=== PATIENT | female | born 1960 | race Caucasian/White ===

== ENCOUNTER 2023-11-25 08:40 | Outpatient (AMB) | payer BC, SELFPAY ==
--- NOTE | 2023-11-25 08:47 | MHC.PC.OV ---
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 Had a colonoscopy and endoscopy a couple months ago Client Service Representative Required: No Allergies No Known Allergies Allergy (Verified 11/25/23 08:49) Medication List - Last Reconciled 11/25/23 by Mayra Whittington PA-C escitalopram oxalate 10 mg PO DAILY fluticasone propionate 220 mcg/actuation 2 puffs inhalation BID ondansetron HCl 4 mg PO Q8H PRN pantoprazole 40 mg PO BID valacyclovir 1,000 mg PO BID Tobacco use date assessed: 11/25/23 Dental Screening Dental Screen Date: 11/25/23 Did you have a dental visit in the last 12 months?: Yes Did you have a dental problem in the last 6 months where you did not have access to dental care?: No Was dental information given to patient?: Patient has dentist HPI 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 She is transferring from [facility]. She complains today of fatigue. She states this started when winter started. She states she got sick around the holidays and since then has just been feeling tired. She states she feels like she could nap at any point. No cp, sob, dizziness, leg swelling. She states that her late used to tell her that she snores a lot. She denies any known episodes of witnessed apnea. Denies any gasping arousals. She states that when she wakes up she still feels tired. No headaches. -Had labs in September cbc, b12, vit d, cmp, tsh and states all labs were normal. Psych: Currently on Lexapro 10 mg. Denies any SI/HI. States 10 mg is very helpful. GI: On pantoprazole 40 mg b.i.d.. Recently had an endoscopy and colonoscopy at [facility] in May 21, 2023. She states that she still just feels nauseous all of the time. She also has loose stools. She denies any weight loss with this. No vomiting, blood in stool or constipation. Pulm: well controlled and uses albuterol rarely. She is not currently on maintenance inhaler. She has not needed anything in 6-7 months. Mammo: UTD 07/20 Pap: UTD- 10/07/23, sees [facility]- UTD within the last 6 months [facility] Medical History (Updated 11/25/23 @ 10:07 by Mayra Whittington PA-C) Fatigue Major depressive disorder, recurrent episode, mild Generalized anxiety disorder Frequent loose stools Nausea GERD with esophagitis Family History (Updated 11/25/23 @ 09:03 by Ebony Fairbanks CMA) Mother HTN (hypertension) Hypercholesteremia Father HTN (hypertension) Hypercholesteremia Sister Leukemia Social History Housing: House Patient Tobacco Use Status: Never used Tobacco e-Cigarette/Vaping Use: Never Used Second Hand Smoke Exposure: Yes (occasionally) service: No Current occupational status: employed Current occupation: [employer] Current occupational exposures/hazards: No Cognitive needs: No Hearing needs: No Vision needs: Yes (Distance glasses) Questionnaire PHQ-9 Over the last 2 weeks, how often have you been bothered by any of the following problems? 1. Little interest or pleasure in doing things: not at all 2. Feeling down, depressed, or hopeless: not at all 3. Trouble falling or staying asleep, or sleeping too much: several days 4. Feeling tired or having little energy: several days 5. Poor appetite or overeating: several days 6. Feeling bad about yourself - or that you are a failure or have let yourself or your family down: not at all 7. Trouble concentrating on things, such as reading the newspaper or watching television: not at all 8. Moving or speaking so slowly that other people could have noticed. Or the opposite - being so fidgety or restless that you have been moving around a lot more than usual: not at all 9. Thoughts that you would be better off or of hurting yourself in some way: not at all Total score: 3 Depression Screening Interpretation: Positive Depression Screening Follow-up: Existing condition and In treatment Depression Screening Done: Yes 70615 - PHQ-9 Billing: Yes Source: Developed by Drs. Jeffry Peters, Kassandra Randle, Torito Santa and colleagues, with an educational uli from [employer]. Thrive Questionnaire Date Thrive assessed: 11/25/23 I am a: Patient What is your living situation today?: I have a steady place to live Within the past 12 months, did the food you bought not last and you didn't have the money to get more?: Never true Within the past 12 months, did you worry whether your food would run out before you got money to buy more?: Never true Do you have trouble paying for medicines?: No Do you have trouble getting transportation to medical appointments?: No Do you have trouble paying your heating and electricity bill?: No Do you have trouble taking care of your child, family member or friend?: No Do you have trouble with day-to-day activities such as bathing, preparing meals, shopping, managing finances, etc.?: No Are you currently unemployed and looking for a job?: No Are you interested in more education?: No Please select the resources that you would like help with: None Currently or been in a relationship where the following occur: no concerns reported THRIVE Score: 0 AUDIT C Alcohol Use Questionnaire (AUDIT-C) 1. How often do you have a drink containing alcohol?: Monthly or less 2. How many drinks containing alcohol do you have on a typical day when you are drinking?: 1 or 2 Total Score: 1 DANUTA-7 AMB Questionnaire DANUTA-7 Date DANUTA - 7 assessed: 11/25/23 Feeling nervous, anxious, or on edge: 1 = Several days Not being able to stop or control worryin = Several days Worrying too much about different things: 1 = Several days Trouble relaxin = Not at all Being so restless that it is hard to sit still: 0 = Not at all Becoming easily annoyed or irritable: 0 = Not at all Feeling afraid as if something awful might happen: 0 = Not at all Total DANUTA-7 score (0-4 normal; 5-9 mild; 10-14 moderate; 15-21 severe): 3 Source: Developed by Drs. Jeffry Peters, Kassandra Randle, Torito Santa and colleagues, with an educational uli from [employer]. DANUTA-7 Assessment Billing DANUTA-7 Assessment Tool: DANUTA-7 Assessment 16226 ACT Questionnaire In the past 4 weeks, how much of the time did your asthma keep you from getting as much done at work, school or at home?: All of the time During the past 4 weeks, how often have you had shortness of breath?: Not at all During the past 4 weeks, how often did your asthma symptoms wake you up at night or earlier than usual in the morning?: Not at all During the past 4 weeks, how often have you had to use your rescue inhaler or nebulizer medication?: Not at all How would you rate your asthma control during the past 4 weeks?: Well controlled ACT Interpretation: Negative Score: 20 Review of Systems Const Reports fatigue, Denies fever(s), Denies night sweats and Denies weight loss Eyes Denies blurry vision ENT Denies facial pain, Denies nasal congestion and Denies nasal discharge Card Denies chest pain, Denies lightheadedness, Denies palpitations and Denies dyspnea Resp Denies cough, Denies dyspnea and Denies wheezing GI Denies abdominal pain, Denies hematochezia, Denies constipation, Denies diarrhea, Denies nausea and Denies vomiting Endo Reports fatigue and Denies palpitations Aller/Immun Denies wheezing Physical exam (Primary Care) Vital Signs: Last Vital Signs Temp 98.3 F 11/25/23 08:56 Pulse 52 11/25/23 08:56 Resp 14 11/25/23 08:56 BP 122/64 11/25/23 08:56 Pulse Ox 96 11/25/23 08:56 Oxygen Delivery Method Room Air 11/25/23 08:56 BMI result Body Mass Index 29.0 Tobacco/Smoking Status: Tobacco use Status Tobacco use date assessed 11/25/23 11/25/23 08:54 Patient Tobacco Use Status Never used Tobacco 11/25/23 08:54 e-Cigarette/Vaping Use Never Used 11/25/23 08:54 Depression Screening Interpretation: Positive Depression Screening Follow-up: Existing condition and In treatment Currently or been in a relationship where the following occur: no concerns reported Const Orientation/consciousness: patient oriented x3 HENMT Ears: hearing grossly normal bilaterally Neck Thyroid: Thyroid normal Lymphatic: no lymphadenopathy noted Resp Auscultation: clear to auscultation bilaterally Cardio Rate: regular rate Rhythm: regular rhythm Heart sounds: S1 normal heart sound present and S2 normal heart sound present GI Inspection: Yes normal to inspection Palpation (GI): Soft to palpation and Other GI palpation findings present (nontender, no cva tenderness) Auscultation: normoactive bowel sounds Skin General skin exam: no rashes or lesions noted Neuro General: patient oriented x3, gait normal and no focal motor deficits Psych Attitude: cooperative Thought content: Normal thought content present Insight: Good insight present (Psych) Judgement: Good judgement present (Psych) Assessment and Plan Assessment & Plan (1) GERD with esophagitis: Code(s): K21.00 - Gastro-esophageal reflux disease with esophagitis, without bleeding Qualifiers: Esophagitis bleeding: without hemorrhage Qualified Code(s): K21.00 - Gastro-esophageal reflux disease with esophagitis, without bleeding Plan: I do not have records of the endoscopy but reports that there was inflammation. Continue with the pantoprazole. Referral to GI. She is on 80 mg a day with breakthrough symptoms. (2) Nausea: Code(s): R11.0 - Nausea Plan: See above. Uses Zofran as needed. (3) Frequent loose stools: Code(s): R19.7 - Diarrhea, unspecified Qualifiers: Diarrhea type: unspecified type Qualified Code(s): R19.7 - Diarrhea, unspecified Plan: Reports recent colonoscopy. Discussed an elimination diet. She will try this. I have referred her to GI. (4) Generalized anxiety disorder: Code(s): F41.1 - Generalized anxiety disorder Plan: Currently well-controlled with Lexapro 10 mg. (5) Major depressive disorder, recurrent episode, mild: Code(s): F33.0 - Major depressive disorder, recurrent, mild Plan: See above. (6) Fatigue: Code(s): R53.83 - Other fatigue Qualifiers: Fatigue type: chronic, unspecified Qualified Code(s): R53.82 - Chronic fatigue, unspecified Plan: ? Related to depression or seasonal changes. We did discuss that this could also be viral from the winter when she had COVID like symptoms. Labs from [facility] were reviewed and WNL. Sleep study ordered as she does report snoring in non restorative sleep. (7) Asthma: Code(s): J45.909 - Unspecified asthma, uncomplicated Qualifiers: Asthma severity: mild Asthma persistence: intermittent Asthma complication type: uncomplicated Qualified Code(s): J45.20 - Mild intermittent asthma, uncomplicated Plan: Well-controlled. Does not need a refill on albuterol. Plan Labs ordered today. Advised to follow up in 6 months. Sooner if needed. Patient understands and agrees with the plan. Orders: Orders Lipid Panel Today F33.0 - Major depressive disorder, recurrent, mild, F41.1 - Generalized anxiety disorder, K21.00 - Gastro-esophageal reflux disease with esophagitis, without bleeding, R11.0 - Nausea, R19.7 - Diarrhea, unspecified Complete Blood Count Auto Diff Today F33.0 - Major depressive disorder, recurrent, mild, F41.1 - Generalized anxiety disorder, K21.00 - Gastro-esophageal reflux disease with esophagitis, without bleeding, R11.0 - Nausea, R19.7 - Diarrhea, unspecified Comprehensive [place]. Panel Fast Today F33.0 - Major depressive disorder, recurrent, mild, F41.1 - Generalized anxiety disorder, K21.00 - Gastro-esophageal reflux disease with esophagitis, without bleeding, R11.0 - Nausea, R19.7 - Diarrhea, unspecified TSH reflex Free T4 Today F33.0 - Major depressive disorder, recurrent, mild, F41.1 - Generalized anxiety disorder, K21.00 - Gastro-esophageal reflux disease with esophagitis, without bleeding, R11.0 - Nausea, R19.7 - Diarrhea, unspecified RT home sleep study Today R06.83 - Snoring, R53.83 - Other fatigue Referrals Gastroenterology Referral K21.00 - Gastro-esophageal reflux disease with esophagitis, without bleeding, R11.0 - Nausea, R19.7 - Diarrhea, unspecified Coding Level of Care Code Est Pt Level 4 (80468) Complex EM visit Add On G2211 Diagnoses Gastroesophageal reflux disease with esophagitis without hemorrhage K21.00 Esophagitis bleeding: without hemorrhage Nausea R11.0 Diarrhea, unspecified type R19.7 Diarrhea type: unspecified type Generalized anxiety disorder F41.1 Major depressive disorder, recurrent episode, mild F33.0 Chronic fatigue R53.82 Fatigue type: chronic, unspecified Mild intermittent asthma without complication J45.20 Asthma severity: mild Asthma persistence: intermittent Asthma complication type: uncomplicated Additional Codes DANUTA-7 Assessment Billing - DANUTA-7 Assessment Tool: DANUTA-7 Assessment 90358 ([id number])
[2023-11-25 08:56] VITALS: BP 122/64; PULSE 52; RESP 14; TEMP 36.8; O2SAT 96; BMI 29.0
== END 2023-11-25 10:07 | disposition home or self-care (01) ==
PROVIDERS: PCP Physician Assistant; Visit Provider Physician Assistant
DX: K21.00 Gastro-esophageal reflux disease with esophagitis, without bleeding (principal); R11.0 Nausea; R19.7 Diarrhea, unspecified; F33.0 Major depressive disorder, recurrent, mild; F41.1 Generalized anxiety disorder; R53.82 Chronic fatigue, unspecified; J45.20 Mild intermittent asthma, uncomplicated
CPT/HCPCS: 99214; G2211

== ENCOUNTER 2024-04-28 09:37 | Outpatient (REF) | payer BC, SELFPAY ==
[2024-04-28 10:59] LABS: MANUAL DIFF FLAG NO
[2024-04-28 11:14] LABS: Basophils Percent Auto 0.2 % (0-2); Eosinophils Absolute Auto 0.1 X10*3/uL (0.0-0.4); Eosinophils Percent Auto 1.7 % (0-4); Hematocrit 39.3 % (37.0-47.0); Hemoglobin 13.5 g/dl (12.0-16.0); Imm Gran Abs Auto 0.01 X10*3/uL (0.00-0.03); Imm Gran Pct Auto 0.2 % (0.0-0.4); Lymphocytes Percent Auto 48.4 % (20-40); Mean Corpuscular HGB Conc 34.4 g/dl (31.0-35.0); Mean Corpuscular Hemoglobin 31.6 pg (27.0-33.0); Mean Platelet Volume 10.1 fL (9.4-12.3); Monocytes Absolute Auto 0.4 X10*3/uL (0.1-1.2); Monocytes Percent Auto 8.4 % (2-11); Neutrophils Absolute Auto 1.7 x10*3/uL (2.0-8.3); Neutrophils Percent Auto 41.1 % (45-73); Platelet Count 226 X10*3/uL (160-400); Red Blood Count 4.27 X10*6/uL (4.20-5.50); White Blood Count 4.2 X10*3/uL (4.8-10.8)
[2024-04-28 11:33] LABS: Alanine Aminotransferase 14 U/L (0-31); Albumin Level 4.1 g/dL (3.5-5.0); Alkaline Phosphatase 73 U/L (39-117); Anion Gap 11 (12-20); Aspartate Amino Transferase 19 U/L (5-31); Bilirubin Total 0.9 mg/dL (0.0-1.0); Blood Urea Nitrogen 13 mg/dL (9-16); Calcium 9.3 mg/dL (8.4-10.2); Carbon Dioxide 27 mmol/L (22-29); Chloride 107 mmol/L (96-108); Cholesterol 191 mg/dL (<200); Estimated Glomerular Filt Rate > 60; Glucose Fasting 86 mg/dL (60-99); HDL Cholesterol 63 mg/dL (>40); LDL Cholesterol Calculated 112 mg/dL (<100); Potassium 4.1 mmol/L (3.3-5.1); Sodium 141 mmol/L (135-145); Triglycerides 80 mg/dL (<150)
[2024-04-28 11:53] LABS: TSH reflex Free T4 0.93 uIU/mL (0.32-4.0)
== END 2024-04-28 09:38 | disposition home or self-care (01) ==
LOC: HO.WFDLDS 09:37
PROVIDERS: Visit Provider Physician Assistant
DX: F41.1 Generalized anxiety disorder (principal); F33.0 Major depressive disorder, recurrent, mild; R19.7 Diarrhea, unspecified; K21.00 Gastro-esophageal reflux disease with esophagitis, without bleeding; R11.0 Nausea
CPT/HCPCS: 36415; 80053; 80061; 84443; 85025

== ENCOUNTER 2024-05-06 08:28 | Outpatient (AMB) | payer BC, SELFPAY ==
--- NOTE | 2024-05-06 08:32 | A.OFFPC_ITS ---
Vital Signs 05/06/24 08:36 Height 5 ft 9 in Weight 202 lb 2 oz BMI 29.8 BP 128/70 Blood Pressure Location Lt radial Position Sitting Pulse 61 Pulse Source Pulse Oximeter Pulse Oximetry (%) 97 Oxygen Delivery Method Room Air Intake Visit Reasons: fatigue f/u Intake Note: Fatigue follow up. Lab results. Allergies No Known Allergies Allergy (Verified 05/06/24 08:35) Medication List - Last Reconciled 05/06/24 by Mayra Whittington PA-C escitalopram oxalate 10 mg PO DAILY fluticasone propionate 220 mcg/actuation 2 puffs inhalation BID pantoprazole 40 mg PO BID valacyclovir 1,000 mg PO BID Tobacco use date assessed: 11/25/23 Dental Screening Dental Screen Date: 11/25/23 HPI fatigue f/u HPI Details Patient is a 63-year-old female who presents today for a follow up. She has a significant past medical history of anxiety, depression, GERD and elevated blood pressure readings. She recently went to the ER in February with complaints of shortness a breath with a stabbing chest pain that woke her up at night. She had labs, chest x-ray and CT which are all reassuring. EKG was reassuring as well. However, while she was at the ER her blood pressure was elevated around 140/80. They felt like this could have been related to uncontrolled acid reflux. While here today in the office her blood pressure is 128/70. She has been checking it at home. She did also have microscopic hematuria while at the ER. No acute concerns today. Feeling well. [facility] Medical History (Updated 11/25/23 @ 10:07 by Mayra Whittington PA-C) Fatigue Major depressive disorder, recurrent episode, mild Generalized anxiety disorder Frequent loose stools Nausea GERD with esophagitis Family History (Updated 11/25/23 @ 09:03 by Ebony Fairbanks CMA) Mother HTN (hypertension) Hypercholesteremia Father HTN (hypertension) Hypercholesteremia Sister Leukemia Social History Housing: House Patient Tobacco Use Status: Never used Tobacco e-Cigarette/Vaping Use: Never Used Second Hand Smoke Exposure: Yes (occasionally) service: No Current occupational status: employed Current occupation: [employer] Current occupational exposures/hazards: No Cognitive needs: No Hearing needs: No Vision needs: Yes (Distance glasses) Questionnaire PHQ-9 Over the last 2 weeks, how often have you been bothered by any of the following problems? 1. Little interest or pleasure in doing things: not at all 2. Feeling down, depressed, or hopeless: not at all 3. Trouble falling or staying asleep, or sleeping too much: several days 4. Feeling tired or having little energy: several days 5. Poor appetite or overeating: not at all 6. Feeling bad about yourself - or that you are a failure or have let yourself or your family down: not at all 7. Trouble concentrating on things, such as reading the newspaper or watching television: not at all 8. Moving or speaking so slowly that other people could have noticed. Or the opposite - being so fidgety or restless that you have been moving around a lot more than usual: not at all 9. Thoughts that you would be better off or of hurting yourself in some way: not at all Total score: 2 Source: Developed by Drs. Jeffry Peters, Kassandra Randle, Torito Santa and colleagues, with an educational uli from [employer]. Thrive Questionnaire Date Thrive assessed: 04/29/24 I am a: Patient What is your living situation today?: I have a steady place to live Within the past 12 months, did the food you bought not last and you didn't have the money to get more?: Never true Within the past 12 months, did you worry whether your food would run out before you got money to buy more?: Never true Do you have trouble paying for medicines?: No Do you have trouble getting transportation to medical appointments?: No Do you have trouble paying your heating and electricity bill?: No Do you have trouble taking care of your child, family member or friend?: No Do you have trouble with day-to-day activities such as bathing, preparing meals, shopping, managing finances, etc.?: No Are you currently unemployed and looking for a job?: No Are you interested in more education?: No Please select the resources that you would like help with: None Currently or been in a relationship where the following occur: No concerns reported THRIVE Score: 0 AUDIT C Alcohol Use Questionnaire (AUDIT-C) 1. How often do you have a drink containing alcohol?: Monthly or less 2. How many drinks containing alcohol do you have on a typical day when you are drinking?: 1 or 2 3. How often do you have six or more drinks on one occasion?: Never Total Score: 1 DANUTA-7 AMB Questionnaire DANUTA-7 Date DANUTA - 7 assessed: 11/25/23 Feeling nervous, anxious, or on edge: 0 = Not at all Not being able to stop or control worryin = Not at all Worrying too much about different things: 0 = Not at all Trouble relaxin = Not at all Being so restless that it is hard to sit still: 0 = Not at all Becoming easily annoyed or irritable: 0 = Not at all Feeling afraid as if something awful might happen: 0 = Not at all Total DANUTA-7 score (0-4 normal; 5-9 mild; 10-14 moderate; 15-21 severe): 0 Source: Developed by Drs. Jeffry Peters, Kassandra Randle, Torito Santa and colleagues, with an educational uli from [employer]. Physical exam (Primary Care) Vital Signs: Last Vital Signs Pulse 61 05/06/24 08:36 BP 128/70 05/06/24 08:36 Pulse Ox 97 05/06/24 08:36 Oxygen Delivery Method Room Air 05/06/24 08:36 BMI result Body Mass Index 29.8 Tobacco/Smoking Status: Tobacco use Status Tobacco use date assessed 11/25/23 05/06/24 08:34 Patient Tobacco Use Status Never used Tobacco 05/06/24 08:34 e-Cigarette/Vaping Use Never Used 05/06/24 08:34 PHQ-9: PHQ-9 Score PHQ-9: Total score 2 05/06/24 08:34 Thrive Assessment: Date of Thrive Assessment Date Thrive assessed 04/29/24 05/06/24 08:34 Currently or been in a relationship where the following occur: No concerns reported Const Orientation/consciousness: patient oriented x3 HENMT Ears: hearing grossly normal bilaterally Neck Thyroid: Thyroid normal Lymphatic: no lymphadenopathy noted Resp Auscultation: clear to auscultation bilaterally Cardio Rate: regular rate Rhythm: regular rhythm Heart sounds: S1 normal heart sound present and S2 normal heart sound present GI Inspection: Yes normal to inspection Palpation (GI): Soft to palpation and Other GI palpation findings present (nontender, no cva tenderness) Auscultation: normoactive bowel sounds Rectal Exam - Female: deferred Skin General skin exam: no rashes or lesions noted Neuro General: patient oriented x3, gait normal and no focal motor deficits Results Reviewed Results Reviewed: Laboratory Tests 04/28/24 09:38 WBC 4.2 L RBC 4.27 Hgb 13.5 Hct 39.3 Plt Count 226 Potassium 4.1 Chloride 107 Carbon Dioxide 27 Anion Gap 11 L BUN 13 Creatinine 0.70 Estimated GFR > 60 Fasting Glucose 86 Calcium 9.3 AST 19 ALT 14 Triglycerides 80 Cholesterol 191 LDL Cholesterol, Calc 112 H HDL Cholesterol 63 TSH 0.93 Coding Level of Care Code Est Pt Level 4 (11561) Complex EM visit Add On G2211 Diagnoses Major depressive disorder, recurrent episode, mild F33.0 Gastroesophageal reflux disease with esophagitis without hemorrhage K21.00 Esophagitis bleeding: without hemorrhage Microscopic hematuria R31.29 Assessment & Plan Assessment & Plan (1) Major depressive disorder, recurrent episode, mild: Code(s): F33.0 - Major depressive disorder, recurrent, mild Category: Medical Plan: Continue Lexapro (2) GERD with esophagitis: Code(s): K21.00 - Gastro-esophageal reflux disease with esophagitis, without bleeding Category: Medical Qualifiers: Esophagitis bleeding: without hemorrhage Qualified Code(s): K21.00 - Gastro-esophageal reflux disease with esophagitis, without bleeding Plan: Has an appointment next week to see GI. Currently on pantoprazole 40 mg b.i.d.. (3) Microscopic hematuria: Code(s): R31.29 - Other microscopic hematuria Plan: No history of this. We will recheck. Orders: Orders UA CC w/rflx Micro + Cult Today R31.9 - Hematuria, unspecified, Z13.220 - Encounter for screening for lipoid disorders
[2024-05-06 08:36] VITALS: BP 128/70; PULSE 61; O2SAT 97; BMI 29.8
== END 2024-05-06 09:12 | disposition home or self-care (01) ==
PROVIDERS: PCP Physician Assistant; Visit Provider Physician Assistant
DX: F33.0 Major depressive disorder, recurrent, mild (principal); K21.00 Gastro-esophageal reflux disease with esophagitis, without bleeding; R31.29 Other microscopic hematuria

== ENCOUNTER → 2024-05-06 08:28 | Outpatient (BNVA) | payer BC, SELFPAY | PROVIDERS: PCP Physician Assistant; Visit Provider Physician Assistant ==

== ENCOUNTER 2024-05-12 10:07 | Outpatient (REF) | payer BC, SELFPAY ==
[2024-05-12 14:40] LABS: Appearance Urine Clear; Color Urine Yellow; Glucose Urine UA Negative (Negative); Leukocyte Esterase Urine Negative (Negative); Nitrite Urine Negative (Negative); Specific Gravity - Urine 1.015 (1.005-1.025); Urine Blood Negative (Negative); Urine Ketones Negative (Negative); Urine Protein Negative (Neg-Trace)
== END 2024-05-12 10:08 | disposition home or self-care (01) ==
LOC: HO.WFDLDS 10:07
PROVIDERS: Visit Provider Physician Assistant
DX: R31.9 Hematuria, unspecified (principal); Z13.220 Encounter for screening for lipoid disorders
CPT/HCPCS: 81003

== ENCOUNTER 2024-06-04 16:18 | Outpatient (AMB) | payer BC, SELFPAY ==
--- NOTE | 2024-06-04 15:57 | A.OFFVIS_ITS ---
Vital Signs 06/04/24 16:22 Height 5 ft 9 in Weight 208 lb 5 oz BMI 30.8 Intake Visit Reasons: discuss weight loss medication Allergies No Known Allergies Allergy (Verified 05/06/24 08:35) Medication List - Last Reconciled 06/04/24 by Mayra Whittington PA-C escitalopram oxalate 10 mg PO DAILY fluticasone propionate 220 mcg/actuation 2 puffs inhalation BID pantoprazole 40 mg PO BID valacyclovir 1,000 mg PO BID HPI HPI discuss weight loss medication: Details: Patient is a 63-year-old female who presents today for a follow up. She has a significant past medical history of anxiety, depression, GERD and obesity She has tried low carb and was able to lose 20 lbs but gained it all back. She states this is the most she has weighed. She tries every day to diet and exercise. She watches her caloric intake. She has tried [place] and atkins. She has tried over the counter fat burners. She felt sick while taking these and did not tolerate. She has tried weight watchers without sustained success. her sister is using wegovy and tolerating well. She says that she is currently the most she has ever weighed and is about 208 lb. No acute concerns today. [facility] Medical History (Updated 06/04/24 @ 16:23 by Mayra Whittington PA-C) Fatigue Major depressive disorder, recurrent episode, mild Generalized anxiety disorder Frequent loose stools Nausea GERD with esophagitis Family History (Updated 11/25/23 @ 09:03 by Ebony Fairbanks CMA) Mother HTN (hypertension) Hypercholesteremia Father HTN (hypertension) Hypercholesteremia Sister Leukemia Social History Housing: House Patient Tobacco Use Status: Never used Tobacco e-Cigarette/Vaping Use: Never Used Second Hand Smoke Exposure: Yes (occasionally) service: No Current occupational status: employed Current occupation: [employer] Current occupational exposures/hazards: No Cognitive needs: No Hearing needs: No Vision needs: Yes (Distance glasses) Telehealth Telehealth Telehealth Platform: [facility] Location of provider rendering services: practice address Location of patient: address on file Patient Identification confirmed using: Name, : Yes Telehealth method: voice only Patient verbally consented to treatment: Yes Patient verbally consented to billing insurance company: Yes Patient informed of any privacy concerns related to visit: Yes Minutes spent on Phone/Video with Pt.: 12 Results Reviewed Results Reviewed: Laboratory Tests 04/28/24 09:38 Creatinine 0.70 Estimated GFR > 60 Fasting Glucose 86 AST 19 ALT 14 Triglycerides 80 Cholesterol 191 LDL Cholesterol, Calc 112 H HDL Cholesterol 63 Assessment & Plan Assessment & Plan (1) Obesity (BMI 30.0-34.9): Code(s): E66.811 - Obesity, class 1 Category: Medical Plan: We will try Wegovy. We discussed risks and benefits and adverse effects such as nausea, vomiting, increased risk of pancreatitis and thyroid malignancy. I have encouraged healthy diet, exercise. 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 Medications: New semaglutide (weight loss) (Wegovy) administer weeks 1 through 4 of therapy 0.25 mg (0.5 mL) subcut QWEEK 2 mL 0RF Coding Level of Care Code Tele Est Pt Level 2 (42561) Diagnoses Obesity (BMI 30.0-34.9) E66.811
[2024-06-04 16:22] VITALS: BMI 30.8
== END 2024-06-04 16:42 | disposition home or self-care (01) ==
LOC: HO.HMCFM 16:18
PROVIDERS: PCP Physician Assistant; Visit Provider Physician Assistant
DX: E66.811 Obesity, class 1 (principal); Z68.30 Body mass index [BMI] 30.0-30.9, adult

== ENCOUNTER → 2024-06-04 16:18 | Outpatient (BNVA) | payer BC, SELFPAY | PROVIDERS: PCP Physician Assistant; Visit Provider Physician Assistant ==

== ENCOUNTER 2024-08-12 10:45 | Outpatient (AMB) | payer BC, SELFPAY ==
--- NOTE | 2024-08-12 10:53 | A.OFFPC_ITS ---
Vital Signs 08/12/24 10:56 Height 5 ft 9 in Weight 203 lb BMI 30.0 BP 114/58 L Blood Pressure Location Lt brachial Position Sitting Pulse 74 Pulse Source Pulse Oximeter Pulse Oximetry (%) 97 Oxygen Delivery Method Room Air Intake Visit Reasons: Back pain Intake Note: Lower left back pain. 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 She has a significant past medical history of anxiety, depression, GERD and obesity She went to a walk-in on 07/24 with complaints of left low back pain. She had a urine test that was normal. They gave her muscle relaxants which are. Pain with laying down and standing up. Improved with compression, heat, and ibuprofen is helpful with pain. The pain does not radiate down the leg. She says that she can feel an aching at times in her hips. She thinks it is related to the back pain. She was doing a lot heavy lifting over [place]. She made a large wooden display. She states that this started after this. She has a history of benign positional vertigo in the past as needed physical therapy for this. She is wondering if she goes to physical therapy for for her back if she could go be seen for this as well because sometimes she will try stretches at home and it will trigger some of her vertigo. She has tried low carb and was able to lose 20 lbs but gained it all back. She states this is the most she has weighed. She tries every day to diet and exercise. She watches her caloric intake. She has tried [place] and atkins. She has tried over the counter fat burners. She felt sick while taking these and did not tolerate. She has tried weight watchers without sustained success. her sister is using wegovy and tolerating well. She says that she is currently the most she has ever weighed and is about 203. She would like to try to get wegovy covered. She is very excited as her [id number] . [facility] Medical History (Updated 08/12/24 @ 11:18 by Mayra Whittington PA-C) Fatigue Major depressive disorder, recurrent episode, mild Generalized anxiety disorder Frequent loose stools Nausea GERD with esophagitis Family History (Updated 11/25/23 @ 09:03 by Ebony Fairbanks CMA) Mother HTN (hypertension) Hypercholesteremia Father HTN (hypertension) Hypercholesteremia Sister Leukemia Social History Housing: House Patient Tobacco Use Status: Never used Tobacco e-Cigarette/Vaping Use: Never Used Second Hand Smoke Exposure: Yes (occasionally) service: No Current occupational status: employed Current occupation: [employer] Current occupational exposures/hazards: No Cognitive needs: No Hearing needs: No Vision needs: Yes (Distance glasses) Questionnaire PHQ-9 Over the last 2 weeks, how often have you been bothered by any of the following problems? 1. Little interest or pleasure in doing things: not at all 2. Feeling down, depressed, or hopeless: not at all 3. Trouble falling or staying asleep, or sleeping too much: not at all 4. Feeling tired or having little energy: not at all 5. Poor appetite or overeating: not at all 6. Feeling bad about yourself - or that you are a failure or have let yourself or your family down: not at all 7. Trouble concentrating on things, such as reading the newspaper or watching television: not at all 8. Moving or speaking so slowly that other people could have noticed. Or the opposite - being so fidgety or restless that you have been moving around a lot more than usual: not at all 9. Thoughts that you would be better off or of hurting yourself in some way: not at all Total score: 0 Source: Developed by Drs. Jeffry Peters, Kassandra Randle, Torito Santa and colleagues, with an educational uli from [employer]. Thrive Questionnaire Date Thrive assessed: 08/09/24 I am a: Patient What is your living situation today?: I have a steady place to live Within the past 12 months, did the food you bought not last and you didn't have the money to get more?: Never true Within the past 12 months, did you worry whether your food would run out before you got money to buy more?: Never true Do you have trouble paying for medicines?: No Do you have trouble getting transportation to medical appointments?: No Do you have trouble paying your heating and electricity bill?: No Do you have trouble taking care of your child, family member or friend?: No Do you have trouble with day-to-day activities such as bathing, preparing meals, shopping, managing finances, etc.?: I choose not to answer this question Are you currently unemployed and looking for a job?: No Are you interested in more education?: I choose not to answer this question Please select the resources that you would like help with: None Currently or been in a relationship where the following occur: No concerns re ported THRIVE Score: 0 AUDIT C Alcohol Use Questionnaire (AUDIT-C) 1. How often do you have a drink containing alcohol?: Monthly or less 2. How many drinks containing alcohol do you have on a typical day when you are drinking?: 1 or 2 3. How often do you have six or more drinks on one occasion?: Never Total Score: 1 DANUTA-7 AMB Questionnaire DANUTA-7 Date DANUTA - 7 assessed: 11/25/23 Feeling nervous, anxious, or on edge: 0 = Not at all Not being able to stop or control worryin = Not at all Worrying too much about different things: 0 = Not at all Trouble relaxin = Not at all Being so restless that it is hard to sit still: 0 = Not at all Becoming easily annoyed or irritable: 0 = Not at all Feeling afraid as if something awful might happen: 0 = Not at all Total DANUTA-7 score (0-4 normal; 5-9 mild; 10-14 moderate; 15-21 severe): 0 Source: Developed by Drs. Jeffry Peters, Kassandra Randle, Torito Santa and colleagues, with an educational uli from [employer]. Physical exam (Primary Care) Vital Signs: Last Vital Signs Pulse 74 08/12/24 10:56 BP 114/58 L 08/12/24 10:56 Pulse Ox 97 08/12/24 10:56 Oxygen Delivery Method Room Air 08/12/24 10:56 BMI result Body Mass Index 30.0 Tobacco/Smoking Status: Tobacco use Status Tobacco use date assessed 11/25/23 08/12/24 10:54 Patient Tobacco Use Status Never used Tobacco 08/12/24 10:54 e-Cigarette/Vaping Use Never Used 08/12/24 10:54 PHQ-9: PHQ-9 Score PHQ-9: Total score 0 08/12/24 11:10 Thrive Assessment: Date of Thrive Assessment Date Thrive assessed 08/09/24 08/12/24 10:54 Currently or been in a relationship where the following occur: No concerns repo rted Const Orientation/consciousness: patient oriented x3 HENMT Ears: hearing grossly normal bilaterally Neck Thyroid: Thyroid normal Lymphatic: no lymphadenopathy noted Resp Auscultation: clear to auscultation bilaterally Cardio Rate: regular rate Rhythm: regular rhythm Heart sounds: S1 normal heart sound present and S2 normal heart sound present GI Inspection: Yes normal to inspection Palpation (GI): Soft to palpation and Other GI palpation findings present (nontender, no cva tenderness) Auscultation: normoactive bowel sounds Rectal Exam - Female: deferred General: Yes no CVA tenderness Back/Spine/Pelvis Back: no CVA tenderness Thoracic/Lumbar Spine: thoracic and lumbar spine normal to inspection, thoraco- lumbar ROM normal, pain with thoraco-lumbar ROM, paraspinal muscle tenderness on the left greater than right and No straight leg raise positive Skin General skin exam: no rashes or lesions noted Neuro General: patient oriented x3, gait normal and no focal motor deficits Coding Level of Care Code Est Pt Level 4 (32363) Complex EM visit Add On G2211 Diagnoses Bilateral hip pain M25.551; M25.552 Lumbar pain M54.50 Benign positional vertigo H81.10 Obesity (BMI 30.0-34.9) E66.811 Major depressive disorder, recurrent episode, mild F33.0 Assessment & Plan Assessment & Plan (1) Bilateral hip pain: Code(s): M25.551 - Pain in right hip; M25.552 - Pain in left hip Category: Medical Plan: X-rays ordered today. Advised to continue with conservative management. Referral to physical therapy. She is to go to [facility]. An order for physical therapy was sent for her. (2) Lumbar pain: Code(s): M54.50 - Low back pain, unspecified Category: Medical Plan: As above. (3) Benign positional vertigo: Code(s): H81.10 - Benign paroxysmal vertigo, unspecified ear Category: Medical Plan: Referral to PT. (4) Obesity (BMI 30.0-34.9): Code(s): E66.811 - Obesity, class 1 Category: Medical Plan: We will start on Wegovy. Discussed risks and benefits and adverse effects of this medication again. (5) Major depressive disorder, recurrent episode, mild: Code(s): F33.0 - Major depressive disorder, recurrent, mild Category: Medical Plan: Currently well-controlled with Lexapro. Orders: Orders PT Evaluation and Treatment Today H81.10 - Benign paroxysmal vertigo, unspecified ear, M25.551 - Pain in right hip, M25.552 - Pain in left hip, M54.50 - Low back pain, unspecified XR lumbar spine 2-3V Today M54.50 - Low back pain, unspecified XR hip ALEKS min 3V Today M25.551 - Pain in right hip, M25.552 - Pain in left hip, M54.50 - Low back pain, unspecified Medications: New semaglutide (weight loss) (Wegovy) 0.25 mg (0.5 mL) subcut QWEEK 2 mL 1RF
[2024-08-12 10:56] VITALS: BP 114/58; PULSE 74; O2SAT 97
== END 2024-08-12 13:34 | disposition home or self-care (01) ==
PROVIDERS: PCP Physician Assistant; Visit Provider Physician Assistant
DX: M25.551 Pain in right hip (principal); F33.0 Major depressive disorder, recurrent, mild; E66.811 Obesity, class 1; Z68.30 Body mass index [BMI] 30.0-30.9, adult; M25.552 Pain in left hip; M54.50 Low back pain, unspecified

== ENCOUNTER → 2024-08-12 10:45 | Outpatient (BNVA) | payer BC, SELFPAY | PROVIDERS: PCP Physician Assistant; Visit Provider Physician Assistant ==

== ENCOUNTER 2024-11-12 07:57 | Outpatient (AMB) | payer MEDICARE, SELFPAY ==
--- OUTSIDE RECORDS SUMMARY | 2024-11-12 08:02 | XMS_ITS | Data Portability ---
Author Organization [place] [facility],, MARLENE PASTRANA MD Address [address] [address] Care Team Providers Care Trucksmith Name Role Phone MichaelaBROWN DARIN Primary Care Provider [phone] Assessment No assessment recorded. Plan of Treatment Reminders Order Date Submit Date Provider Last Modified By Organization Details Last Modified Time Details Appointments None recorded. Lab cytology report, thin prep, smear or scraping, cervical or vaginal 2024 025 NANCY [facility] (Centralized Electronic Ordering - All Locations), Patient Can Go To The Location Of Their Choice, [id number] 5 16:07:45 pap test, thinprep, cervical 2023 024 [email or web address] [facility] (Centralized [facility] Ordering - All Locations), Patient Can Go To The Location Of Their Choice, [id number] 4 07:35:39 fecal occult blood, stool 2023 024 [email or web address] 1 In-Office Order, Internal Use Only DO Not Attach Compendium DO Not Attach Compendium, Do Not Delete/merge, [id number] 4 08:27:09 urinalysis , dipstick 2022 023 [email or web address] 1 In-Office Order, Internal Use Only DO Not Attach Compendium DO Not Attach Compendium, Do Not Delete/merge, [id number] 3 08:35:56 culture, urine 2022 023 NANCY [facility] (Centralized Electronic Ordering - All Locations), Patient Can Go To The Location Of Their Choice, [id number] 3 07:31:04 urinalysis , dipstick 2022 023 [email or web address] 1 In-Office Order, Internal Use Only DO Not Attach Compendium DO Not Attach Compendium, Do Not Delete/merge, [id number] 3 09:54:24 culture, urine 2022 023 NANCY [facility] (Centralized Electronic Ordering - All Locations), Patient Can Go To The Location Of Their Choice, [id number] 3 07:33:28 pap test, thinprep, cervical 2022 023 [facility] ([facility] Ordering - All Locations), Patient Can Go To The Location Of Their Choice, [id number] 3 07:41:29 fecal occult blood, stool 2022 023 [email or web address] 1 In-Office Order, Internal Use Only DO Not Attach Compendium DO Not Attach Compendium, Do Not Delete/merge, [id number] 3 09:21:37 Referral None recorded. Procedures None recorded. Surgeries None recorded. Imaging MAMMO, screening, digital, bilateral - Breast Aspiration and/or Biopsy if needed 2024 025 [facility], [address], [address], [place], [address], 5 10:38:32 bone density 2024 025 [facility], [address], [address], [place], [address], 5 10:38:32 MAMMO, screening, digital, bilateral - Breast Aspiration and/or Biopsy if needed 2023 024 [facility], [address], [place], [address], 4 11:15:33 MAMMO, screening, digital, bilateral - Breast Aspiration and/or Biopsy if needed 2022 023 [facility], [address], [address], [place], [address], 3 09:45:35 Medication Orders nitrofuran toin monohydrat e/macrocry stals 100 mg capsule 2022 023 [id number], [address] [place], [address], 4 08:06:50 phenazopyr idine 200 mg tablet 2022 023 [facility], [address] [place], [address], 4 08:06:55 Patient TargetsNo targets recorded. Patient Instructions Encounter Date Encounter Id Patient Instructions Last Modified By Organization Details Last Modified Time 10/04/2022 [id number] learning about healthy weight [email or web address] Not available 10/04/2022 09:21:37 She is here for annual, doing well, her 26 year old daughter lives with her, things are good. She is a . Has not yet had colonoscopy but will get it soon. Note from 2021: She is here for annual exam, as a new patient. she had a mammogram in 06/18 that noted dense breasts and she was advised to discuss this with her doctor. No discrete abnormality was noted. 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 Her 7 years ago from a silent [place] while he slept. She has not dated since then. Her youngest daughter still lives at home. We disucssed the dense breast issues. She appears to be doing well. She had her colonoscopy 11 years ago, is advised to set this up, she agrees to do so. Is seeing her new PCP in November. __ She appears to be doing well. Monthly self breast exam was taught, and stressed, and is advised to call if she discovers any new mass in the breast. tracy Not available 10/04/2022 09:21:48 12/05/2022 [id number] urinary tract infection in women information tracy Not available 12/05/2022 09:54:24 She is here for a one week histroy of worsening dysuria, frequency, urgency and nocturia. She is not sexually active, she does hold her urine for a long time sometimes, though. Urine dip has moderate blood nad large leuk, she appears ot have a UTI. Rx macrobid. Advised on ways to try to prevent recurrent UTIs. All questions answered. Will also rx pyridium at her request, as she has profound nocturia nad pressure discomfort at this time. Warned about urine and tears color change nad staining of clothing. Face to face discussion 30 minutes tracy Not available 12/05/2022 10:14:31 12/19/2022 [id number] urinary tract infection in women information tracy Not available 12/19/2022 08:35:56 She is here for AHSLIE after UTI, she still has mild dysuria however the frequency and urgency is resolved. Urine culture grew > 10 6th E Coli, sensitive to the macrobid that she took. Urine dip still has small blood and trace leuk, check culture. Advised of the need to not hold urine for a long time past first urge, etc. How to try to prevent recurrent UTI discussed. All questions answered. Face to face discussion 20 minutes tracy Not available 12/19/2022 08:37:39 10/07/2023 [id number] learning about healthy weight tracy Not available 10/07/2023 08:27:09 She is here for annual, doing well, her daughter still living with her, She's great! She had her colonoscopy last year , No polyps! . Note from 2022: She is here for annual, doing well, her 26 year old daughter lives with her, things are good. She is a . Has not yet had colonoscopy but will get it soon. She appears to be doing well. Monthly self breast exam was taught, and stressed, and is advised to call if she discovers any new mass in the breast. [email or web address] Not available 10/07/2023 08:27:19 10/13/2024 [id number] atrophic vaginitis: care instructions tracy Not available 10/13/2024 08:20:15 learning about healthy weight tracy Not available 10/13/2024 08:20:15 She is here for annual, doing well, her son is expecting her first grandchild, her daugther lives with her, she is happy! Note from 2023: She is here for annual, doing well, her daughter still living with her, She's great! She had her colonoscopy last year , No polyps! __ She haw started to develop urinary urge but no incontinence, advised she could return for consult about vaginal estradiol, she declines for now. She appears to be doing well. Monthly self breast exam was taught, and stressed, and is advised to call if she discovers any new mass in the breast. tracy Not available 10/13/2024 08:20:57 Reason for Referral None Reported. Results Created Date Observation Date Name Description Value Unit Range Abnormal Flag Note LastModifiedBy Organization Detail LastModifiedTime 10/05/19 23 10/04/2022 [facility] OGY results Robert nt Name: MONICA IRAHETA nt : 1960 (Age: 62) Lab Acces angela #: [id number] Colle ction Date: 023 Acces angela Date: 023 Sign Out Date: 2022 Tissu e Sourc e: 1: THINP REP IT SPECIALIST PAP TEST, CERVI ARMIN: Final Diagn osis: NEGAT LEENA FOR INTRA EPITH ELIAL LESIO N OR CHANTEL BROWN . Atrop hy. Satis facto ry for evalu ation . Clini armin Histo ry: Date of Last Menst rual Perio d: not avail able Menst rual Histo ry: Post- menop ausal Contr acept leena Histo ry: not avail able Ancil kendal Testi ng: HPV (ASCU S) Case image d by the ThinP rep Imagi ng Syste m with sheri reddy or jaylyn carlos Clini armin Histo ry (othe r): Z01.4 19, denicei edgar barney n, last pap 2 Phone #: [phone], On-Ca ll Patho logis t: [id number] Not Available [facility] (Centralized Electronic Ordering - All Locations) Patient Can Go To The Location Of Their Choice, 10/16/2022 15:40:56 10/05/1910/04/2022 fecal occul t blood , stool Occult Blood negati ve Not Available In-Office Order Internal Use Only DO Not Attach Compendium DO Not Attach Compendium, Do Not Delete/merge, [id number] 10/04/2022 08:38:59 12/06/1912/05/2022 URINE CULTU RE special requests NONE Not Available [facility] ([facility] - All Locations) Patient Can Go To The Location Of Their Choice, 12/08/2022 07:33:28 12/06/1912/06/2022 URINE CULTU RE specimen description URINE Not Available [facility] ([facility] - [facility] Locations) Patient Can Go To The Location Of Their Choice, 12/08/2022 07:33:28 12/06/19 23 12/08/2022 URINE CULTU RE culture abnormal >100, 000 COL/M L ESCHE DIA A COLI These AST resul ts were perfo rmed on the Micro scan ID and AST syste m Not Available [facility] (Centralized Electronic Ordering - All Locations) Patient Can Go To The Location Of Their Choice, 12/08/2022 07:33:28 12/06/19 23 12/08/2022 URINE CULTU RE report status FINAL 2022 Not Available [facility] (Centralized Electronic Ordering - All Locations) Patient Can Go To The Location Of Their Choice, 12/08/2022 07:33:28 12/06/19 23 12/08/2022 URINE CULTU RE organism ORGAN ISM >100, 000 COL/M L ESCHE DIA A COLI These AST resul ts were perfo rmed on the Micro scan ID and AST syste m Not Available [facility] (Centralized Electronic Ordering - All Locations) Patient Can Go To The Location Of Their Choice, 12/08/2022 07:33:28 12/06/1912/08/2022 URINE CULTU RE method METHOD MIN. INHIB. CONC. (MCG/M L) Not Available [facility] ([facility]ized [facility] Ordering - All Locations) Patient Can Go To The Location Of Their Choice, 12/08/2022 07:33:28 12/06/1912/08/2022 URINE CULTU RE ampicillin AMPICI LLIN SUSCEP TIBLE susceptib le Not Available [facility] (Centralized [facility] Ordering - All Locations) Patient Can Go To The Location Of Their Choice, 12/08/2022 07:33:28 12/06/1912/08/2022 URINE CULTU RE ampicillin/s ulbactam AMPICI LLIN/S ULBACT AM SUSCEP TIBLE susceptib le Not Available [facility] (Centralized [facility] Ordering - All Locations) Patient Can Go To The Location Of Their Choice, 12/08/2022 07:33:28 12/06/1912/08/2022 URINE CULTU RE amoxicillin/ clavulanic acid AMOXIC ILLIN/ CLAVUL AN SUSCEP TIBLE susceptib le Not Available [facility] (Centralized [facility] Ordering - All Locations) Patient Can Go To The Location Of Their Choice, 12/08/2022 07:33:28 12/06/1912/08/2022 URINE CULTU RE cefazolin CEFAZO MOMO SUSCEP TIBLE susceptib le Not Available [facility] (Centralized [facility] Ordering - All Locations) Patient Can Go To The Location Of Their Choice, 12/08/2022 07:33:28 12/06/1912/08/2022 URINE CULTU RE cefepime CEFEPI ME SUSCEP TIBLE susceptib le Not Available [facility] (Centralized Electronic Ordering - All Locations) Patient Can Go To The Location Of Their Choice, 12/08/2022 07:33:28 12/06/1912/08/2022 URINE CULTU RE ceftriaxone CEFTRI AXONE SUSCEP TIBLE susceptib le Not Available [facility] (Centralized Electronic Ordering - All Locations) Patient Can Go To The Location Of Their Choice, 12/08/2022 07:33:28 12/06/1912/08/2022 URINE CULTU RE ciprofloxaci n CIPROF LOXACI N SUSCEP TIBLE susceptib le Not Available [facility] (Centralized Electronic Ordering - All Locations) Patient Can Go To The Location Of Their Choice, 12/08/2022 07:33:28 12/06/1912/08/2022 URINE CULTU RE ertapenem ERTAPE NEM SUSCEP TIBLE susceptib le Not Available [facility] (Centralized Electronic Ordering - All Locations) Patient Can Go To The Location Of Their Choice, 12/08/2022 07:33:28 12/06/1912/08/2022 URINE CULTU RE gentamicin GENTAM ICIN SUSCEP TIBLE susceptib le Not Available [facility] (Centralized Electronic Ordering - All Locations) Patient Can Go To The Location Of Their Choice, 12/08/2022 07:33:28 12/06/1912/08/2022 URINE CULTU RE levofloxacin LEVOFL OXACIN SUSCEP TIBLE susceptib le Not Available [facility] (Centralized [facility] Ordering - All Locations) Patient Can Go To The Location Of Their Choice, 12/08/2022 07:33:28 12/06/1912/08/2022 URINE CULTU RE meropenem MEROPE NEM SUSCEP TIBLE susceptib le Not Available [facility] (Centralized Electronic Ordering - All Locations) Patient Can Go To The Location Of Their Choice, 12/08/2022 07:33:28 12/06/1912/08/2022 URINE CULTU RE nitrofuranto in NITROF URANTO IN SUSCEP TIBLE susceptib le Not Available [facility] (Centralized Electronic Ordering - All Locations) Patient Can Go To The Location Of Their Choice, 12/08/2022 07:33:28 12/06/1912/08/2022 URINE CULTU RE piperacillin /tazobactam PIPERA CILLIN /TAZOB AC SUSCEP TIBLE susceptib le Not Available [facility] (Centralized Electronic Ordering - All Locations) Patient Can Go To The Location Of Their Choice, 12/08/2022 07:33:28 12/06/1912/08/2022 URINE CULTU RE trimeth/sulf amethox TRIMET H/SULF AMETHO X SUSCEP TIBLE susceptib le Not Available [facility] (Centralized Electronic Ordering - All Locations) Patient Can Go To The Location Of Their Choice, 12/08/2022 07:33:28 12/06/1912/08/2022 URINE CULTU RE tetracycline TETRAC YCLINE SUSCEP TIBLE susceptib le Not Available [facility] (Centralized Electronic Ordering - All Locations) Patient Can Go To The Location Of Their Choice, 12/08/2022 07:33:28 12/06/1912/05/2022 urina lysis , dipst ick GLU Negati ve Not Available In-Office Order Internal Use Only DO Not Attach Compendium DO Not Attach Compendium, Do Not Delete/merge, 12/05/2022 09:36:26 12/06/1912/05/2022 urina lysis , dipst ick ALEKS Negati ve Not Available In-Office Order Internal Use Only DO Not Attach Compendium DO Not Attach Compendium, Do Not Delete/merge, 12/05/2022 09:36:26 12/06/1912/05/2022 urina lysis , dipst ick KET Negati ve Not Available In-Office Order Internal Use Only DO Not Attach Compendium DO Not Attach Compendium, Do Not Delete/merge, 12/05/2022 09:36:26 12/06/1912/05/2022 urina lysis , dipst ick SG 1.015 Not Available In-Office Order Internal Use Only DO Not Attach Compendium DO Not Attach Compendium, Do Not Delete/merge, 12/05/2022 09:36:26 12/06/1912/05/2022 urina lysis , dipst ick BLO Modera te Not Available In-Office Order Internal Use Only DO Not Attach Compendium DO Not Attach Compendium, Do Not Delete/merge, 12/05/2022 09:36:26 12/06/19 23 12/05/2022 urina lysis , dipst ick pH 7.0 Not Available In-Office Order Internal Use Only DO Not Attach Compendium DO Not Attach Compendium, Do Not Delete/merge, 12/05/2022 09:36:26 12/06/19 23 12/05/2022 urina lysis , dipst ick PRO 100 Not Available In-Office Order Internal Use Only DO Not Attach Compendium DO Not Attach Compendium, Do Not Delete/merge, 12/05/2022 09:36:26 12/06/19 23 12/05/2022 urina lysis , dipst ick URO 0.2 E.U. / dl Not Available In-Office Order Internal Use Only DO Not Attach Compendium DO Not Attach Compendium, Do Not Delete/merge, 12/05/2022 09:36:26 12/06/19 23 12/05/2022 urina lysis , dipst ick NIT negati ve Not Available In-Office Order Internal Use Only DO Not Attach Compendium DO Not Attach Compendium, Do Not Delete/merge, 12/05/2022 09:36:26 12/06/19 23 12/05/2022 urina lysis , dipst ick SERGIO Large Not Available In-Office Order Internal Use Only DO Not Attach Compendium DO Not Attach Compendium, Do Not Delete/merge, 12/05/2022 09:36:26 12/20/19 23 12/19/2022 URINE CULTU RE specimen description URINE Not Available [facility] ([facility] Order[facility] - [facility] Locations) Patient Can Go To The Location Of Their Choice, 12/21/2022 07:31:04 12/20/1912/19/2022 URINE CULTU RE special requests NONE Not Available [facility] ([facility] Ordering - All Locations) Patient Can Go To The Location Of Their Choice, 12/21/2022 07:31:04 12/20/1912/21/2022 URINE CULTU RE culture NO GROWTH Not Available [facility] (Centralized Electronic Ordering - All Locations) Patient Can Go To The Location Of Their Choice, 12/21/2022 07:31:04 12/20/1912/21/2022 URINE CULTU RE report status FINAL 2022 Not Available [facility] ([facility]ized [facility] Ordering - All Locations) Patient Can Go To The Location Of Their Choice, 12/21/2022 07:31:04 12/20/19 23 12/19/2022 urina lysis , dipst ick GLU Negati ve Not Available In-Office Order Internal Use Only DO Not Attach Compendium DO Not Attach Compendium, Do Not Delete/merge, 12/19/2022 08:29:46 12/20/19 23 12/19/2022 urina lysis , dipst ick ALEKS Negati ve Not Available In-Office Order Internal Use Only DO Not Attach Compendium DO Not Attach Compendium, Do Not Delete/merge, 12/19/2022 08:29:46 12/20/19 23 12/19/2022 urina lysis , dipst ick KET Negati ve Not Available In-Office Order Internal Use Only DO Not Attach Compendium DO Not Attach Compendium, Do Not Delete/merge, 12/19/2022 08:29:46 12/20/19 23 12/19/2022 urina lysis , dipst ick SG 1.015 Not Available In-Office Order Internal Use Only DO Not Attach Compendium DO Not Attach Compendium, Do Not Delete/merge, 12/19/2022 08:29:46 12/20/19 23 12/19/2022 urina lysis , dipst ick BLO Small Not Available In-Office Order Internal Use Only DO Not Attach Compendium DO Not Attach Compendium, Do Not Delete/merge, 12/19/2022 08:29:46 12/20/19 23 12/19/2022 urina lysis , dipst ick pH 6.0 Not Available In-Office Order Internal Use Only DO Not Attach Compendium DO Not Attach Compendium, Do Not Delete/merge, 12/19/2022 08:29:46 12/20/19 23 12/19/2022 urina lysis , dipst ick PRO Negati ve Not Available In-Office Order Internal Use Only DO Not Attach Compendium DO Not Attach Compendium, Do Not Delete/merge, 12/19/2022 08:29:46 12/20/19 23 12/19/2022 urina lysis , dipst ick URO 0.2 E.U. / dl Not Available In-Office Order Internal Use Only DO Not Attach Compendium DO Not Attach Compendium, Do Not Delete/merge, [id number] 12/19/2022 08:29:46 12/20/1912/19/2022 urina lysis , dipst ick NIT negati ve Not Available In-Office Order Internal Use Only DO Not Attach Compendium DO Not Attach Compendium, Do Not Delete/merge, [id number] 12/19/2022 08:29:46 12/20/1912/19/2022 urina lysis , dipst ick SERGIO Trace Not Available In-Office Order Internal Use Only DO Not Attach Compendium DO Not Attach Compendium, Do Not Delete/merge, [id number] 12/19/2022 08:29:46 10/07/1910/30/2023 IGP, RFX APTIM A HPV ASCU diagnosis: Commen t NEGAT LEENA FOR INTRA EPITH ELIAL LESIO N OR MALIG MONICA . CELLU LAR SALAZAR ES ASSOC IATED WITH ATROP HY ARE PRESE NT. THIS SPECI MEN WAS RESCR EENED PART OF OUR QUALI TY CONTR OL PROGR AM. Not Available [facility] [address] [facility], [place], [address], 10/30/2023 10:06:42 10/07/19 24 10/30/2023 IGP, RFX APTIM A HPV ASCU specimen adequacy: Commen t Satis facto ry for evalu ation . Endoc ervic al compo nent may not be disti nguis hed in cases of atrop hy. Not Available [facility] [address] [facility], [place], [address], 10/30/2023 10:06:42 10/07/19 24 10/30/2023 IGP, RFX APTIM A HPV ASCU clinician provided ICD10: Mary Ann t Z01.4 19 Not Available [facility] [address] [facility], [place], [address], 10/30/2023 10:06:42 10/07/19 24 10/30/2023 IGP, RFX APTIM A HPV ASCU performed by: Mary Ann Garcia , Cytot echno logis t (ASCP ) Not Available [facility] [address] [place], [address], 10/30/2023 10:06:42 10/07/19 24 10/30/2023 IGP, RFX APTIM A HPV ASCU QC reviewed by: Mary Ann Dent, Cytot echno logis t (ASCP ) Not Available [facility] [address] [facility], [place], [address], 10/30/2023 10:06:42 10/07/19 24 10/30/2023 IGP, RFX APTIM A HPV ASCU . . Not Available [facility] [address] [place], [address], 10/30/2023 10:06:42 10/07/19 24 10/30/2023 IGP, RFX APTIM A HPV ASCU note: Mary Ann smith The Pap smear is a scree sally test desig [place] to aid in the detec tion of hansel ligna nt and malig nant condi tions of the uteri ne cervi x. It is not a diagn ostic proce dure and shoul d not be used as the sole means of detec ting cervi armin cance r. Both false -posi tive and false -nega tive repor ts do occur . Not Available [facility] [address] [facility], [place], [address], 10/30/2023 10:06:42 10/07/19 24 10/30/2023 IGP, RFX APTIM A HPV ASCU . Mary Ann smith The HPV DNA refle x crite ramirez were not met with this speci men resul t there fore, no HPV testi ng was perfo rmed. Not Available [facility] [address] [place], [address], 10/30/2023 10:06:42 10/07/19 24 10/07/2023 fecal occul t blood , stool Occult Blood negati ve Not Available In-Office Order Internal Use Only DO Not Attach Compendium DO Not Attach Compendium, Do Not Delete/merge, [id number] 10/07/2023 08:05:46 10/14/19 25 10/16/2024 IGP, RFX APTIM A HPV ASCU diagnosis: Mary Ann STERN FOR INTRA EPITH ELIAL LESIO N OR CHANTEL BROWN . CELLU LAR SALAZAR ES ASSOC IATED WITH ATROP HY ARE PRESE NT. Not Available [facility] [address] [place], [address], 10/16/2024 16:07:45 10/14/19 25 10/16/2024 IGP, RFX APTIM A HPV ASCU specimen adequacy: Mary Ann smith Satis facto michelle for evalu ation . Endoc ervic al compo nent may not be disti nguis hed in cases of atrop hy. Not Available [facility] [address] [facility], [place], [address], 10/16/2024 16:07:45 10/14/19 25 10/16/2024 IGP, RFX APTIM A HPV ASCU clinician provided ICD10: Mary Ann smith Z12.4 Not Available [facility] [address] [place], [address], 10/16/2024 16:07:45 10/14/19 25 10/16/2024 IGP, RFX APTIM A HPV ASCU performed by: Rush Ferrer (ASCP ) Not Available [facility] [address] [place], [address], 10/16/2024 16:07:45 10/14/19 25 10/16/2024 IGP, RFX APTIM A HPV ASCU . . Not Available [facility] [address] [place], [address], 10/16/2024 16:07:45 10/14/19 25 10/16/2024 IGP, RFX APTIM A HPV ASCU note: Commen t The Pap smear is a scree sally test desig [place] to aid in the detec tion of hansel ligna nt and malig nant condi tions of the uteri ne cervi x. It is not a diagn ostic proce dure and shoul d not be used as the sole means of detec ting cervi armin cance r. Both false -posi tive and false -nega tive repor ts do occur . Not Available [facility] [address] [facility], [place], [address], 10/16/2024 16:07:45 10/14/19 25 10/16/2024 IGP, RFX APTIM A HPV ASCU test methodology: Commen t This liqui d based ThinP rep(R ) pap test was scree parish with the use of an image guide d syste m. Not Available [facility] [address] [place], [address], 10/16/2024 16:07:45 10/14/19 25 10/16/2024 IGP, RFX APTIM A HPV ASCU . Commen t The HPV DNA refle x crite ramirez were not met with this speci men resul t there fore, no HPV testi ng was perfo rmed. Not Available [facility] [address] [place], [address], 10/16/2024 16:07:45 07/02/20 23 07/02/2023 MAMMO , scree sally, digit al, bilat eral No observ ation record ed. [email or web address] [facility] [address], [place], [address], 07/02/2023 09:55:54 09/27/19 24 07/02/2023 MAMMO , scree sally, digit al, bilat eral No observ ation record ed. BARCODE [facility] [address], [place], [address], 09/27/2023 07:42:21 07/03/20 24 07/03/2024 MAMMO , scree sally, digit al, bilat eral No observ ation record ed. [email or web address] [facility] [address], [place], [address], 07/16/2024 11:05:25 07/09/20 24 07/09/2024 MAMMO , diagn ostic , digit al, unila teral No observ ation record ed. [email or web address] [facility] [place] [address] [place], [address], 07/09/2024 14:42:58 Result Notes None recorded. Problems Name Problem SNOMED Code Status Onset Date Resolution Date Notes Provider Name and Address Organization Details Recorded Time Asthma [id number] Active 022 Johana castorena [place] - [facility], 10/04/2021 08:57:45 Problem Notes None recorded. Procedures Surgical History Date Name Laterality Status Provider Name and Address Organization Details Recorded Time Most Recent Mammogram completed Karma Gonsalez [facility] - [facility] [facility]24 11:44:09 Imaging Results Imaging Date Name Status LastModified by Organ [facility] Details LastModified Time 07/02/2023 MAMMO, screening, digital, bilateral completed [email or web address] [facility] [address], [place], [address], 07/02/2023 09:55:54 07/02/2023 MAMMO, screening, digital, bilateral completed BARCODE [facility] Orders [address], [place], [address], 09/27/2023 07:42:21 07/03/2024 MAMMO, screening, digital, bilateral completed [email or web address] [facility] [address] [place], [address], 07/16/2024 11:05:25 07/09/2024 MAMMO, diagnostic, digital, unilateral completed [email or web address] [facility] [address] [place], [address], 07/09/2024 14:42:58 Procedure Notes None recorded. Medical Equipment None Reported. Allergies No known drug allergies Medications Name Sig Start Date Stop Date Status Note LastModified by Organization Details LastModified Time cyclobenzap rine 10 mg tablet TAKE ONE TABLET BY MOUTH DAILY AT BEDTIME NEEDED FOR MUSCLE SPASMS 10/13 completed Not Available Not Available Not Available valacyclovi r 1 gram tablet TAKE ONE TABLET BY MOUTH EVERY 12 HOURS 10/06 completed Not Available Not Available Not Available phenazopyri dine 200 mg tablet TAKE ONE TABLET BY MOUTH THREE TIMES A DAY NEEDED FOR 4 DAYS 10/06 completed Not Available Not Available Not Available famotidine 40 mg tablet TAKE ONE TABLET BY MOUTH EVERY DAY active Not Available Not Available No t Available tramadol 50 mg tablet TAKE ONE TABLET BY MOUTH EVERY 6 HOURS NEEDED FOR PAIN DIRECTED 10/06 completed Not Available Not Available Not Available triamcinolo ne acetonide 0.025 % topical cream APPLY TO AFFECTED AREA S) TOPICALLY THREE TIMES A DAY 10/13 completed Not Available Not Available Not Available meclizine 25 mg tablet TAKE 1 TABLET BY MOUTH 3 TIMES A DAY NEEDED FOR DIZZINESS 10/13 completed Not Available Not Available Not Available cephalexin 500 mg capsule TAKE ONE CAPSULE BY MOUTH THREE TIMES A DAY FOR 7 DAYS 10/13 completed Not Available Not Available Not Available pantoprazol e 40 mg tablet,skye yed release TAKE ONE TABLET BY MOUTH TWICE A DAY 10/13 completed Not Available Not Available Not Available erythromyci n 5 mg/gram (0.5 %) eye ointment APPLY TO THE UPPER LIDS FOUR TIMES A DAY FOR 10 DAYS 10/04 completed Not Available Not Available Not Available metronidazo le 0.75 % topical cream APPLY TOPICALLY TWO TIMES A DAY TO FACE FOR PIMPLE-LI KE LESIONS. APPLY NON-COMED OGENIC MOISTURIZ ER 10 MINUTES AFTER 10/06 completed Not Available Not Available Not Available methylpredn isolone 4 mg tablets in a dose pack FOLLOW DIRECTION S ON PACKAGE DIRECTED 10/06 completed Not Available Not Available Not Available albuterol sulfate HFA 90 mcg/actuati on aerosol inhaler INHALE TWO PUFFS BY MOUTH EVERY 4 HOURS NEEDED FOR WHEEZING/ SHORTNESS OF BREATH active Not Available Not Available No t Available amoxicillin 875 mg-potassiu m clavulanate 125 mg tablet TAKE ONE TABLET BY MOUTH EVERY 12 HOURS FOR 10 DAYS 10/06 completed Not Available Not Available Not Available escitalopra m 10 mg tablet TAKE ONE TABLET BY MOUTH EVERY DAY active Not Available Not Available No t Available bupropion HCl XL 300 mg 24 hr tablet, extended release TAKE ONE TABLET BY MOUTH EVERY DAY active Not Available Not Available No t Available escitalopra m 5 mg tablet TAKE ONE TABLET BY MOUTH EVERY DAY 10/04 completed Not Available Not Available Not Available nitrofurant oin monohydrate /macrocryst als 100 mg capsule TAKE ONE CAPSULE BY MOUTH EVERY 12 HOURS FOR 7 DAYS 10/06 completed Not Available Not Available Not Available Flovent HFA 110 mcg/actuati on aerosol inhaler INHALE TWO PUFFS BY MOUTH TWICE A DAY active Not Available Not Available No t Available Flovent HFA 220 mcg/actuati on aerosol inhaler INHALE 2 PUFFS TWICE A DAY active Not Available Not Available No t Available sodium,pota ssium,mag sulfates 17.5 gram-3.13 gram-1.6 gram oral soln TAKE OFFICE INSTRUCTE D FOR SPLIT PREP 12/05 completed Not Available Not Available Not Available COVID-19 test specimen collection TEST DIRECTED TODAY active Not Available Not Available No t Available Vitals Date Recorded Body height Body mass index (BMI) Body weight Provider Name and Address Organization Details Last Updated DateTime 10/04/2022 175.26 cm 27.8 kg/m2 79644.37 g Johana Weston [place] - [facility], 10/04/2022 08:37:29 Date Recorded Body height Body mass index (BMI) Body weight Heart rate Systolic blood pressure Diastolic blood pressure Provider Name and Address Organization Details Last Updated DateTime 05/10/202 3 175.26 cm 27.8 kg/m2 28687.3 7 g 86 /min 132 mm[Hg] 67 mm[Hg] Johana Richardson in [facility], 3 09:45:23 Date Recorded Body height Body temperature Body mass index (BMI) Body weight Heart rate Systolic blood pressure Diastolic blood pressure Provider Name and Address Organization Details Last Updated DateTime 3 175.26 cm 97.5 [degF] 28.5 kg/m2 89835.3 3 g 69 /min 144 mm[Hg] 58 mm[Hg] Karma Richardson in [facility], 3 08:31:17 Date Recorded Body height Body mass index (BMI) Body weight Heart rate Systolic blood pressure Diastolic blood pressure Provider Name and Address Organization Details Last Updated DateTime 4 175.26 cm 29.2 kg/m2 70751.2 9 g 63 /min 149 mm[Hg] 59 mm[Hg] Karma Richardson in [facility], 4 08:05:17 Date Recorded Body weight Body mass index (BMI) Body height Body temperature Heart rate Systolic blood pressure Diastolic blood pressure Provider Name and Address Organization Details Last Updated DateTime 5 74060.7 g 30 kg/m2 172.72 cm 97.2 [degF] 73 /min 141 mm[Hg] 58 mm[Hg] Karma Richardson in [facility], 5 08:02:11 Social History Question Answer Notes LastModified by Organizat ion Details LastModified Time Tobacco Smoking Status Never Smoker TY Stephens in [facility], 10/04/2021 08:58:18 What Is Your Level Of Alcohol Consumption? Occasional Information not available 10/04/2021 How Many Years Have You Consumed Alcohol? 41 Information not available 10/04/2021 What Is Your Level Of Caffeine Consumption? Moderate Information not available 10/04/2021 In The 14 Days Before Symptom Onset, Have You Had Close Contact With A [facility] COVID-19 While That Case Was Ill? No Information not available 10/04/2021 In The 14 Days Before Symptom Onset, Have You Had Close Contact With A Person Who Is Under Investigation For COVID-19 While That Person Was Ill? No Information not available 10/04/2021 Have You Been To An Area Known To Be High Risk For COVID-19? No Information not available 10/04/2021 Are You Currently Employed? Yes Information not available 10/04/2021 What Is The Highest Grade Or Level Of School You Have Completed Or The Highest Degree You Have Received? [id number] Information not available 10/04/2021 Who Is Your Employer? [employer]. 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 No Information not available 10/04/2021 To Which Gender Do You Self-identify? Female Information not available 10/04/2021 What Was The Date Of Your Most Recent Tobacco Screening? 10/13/2024 Information not available 10/13/2024 What Is Your Relationship Status? Information not available 10/04/2021 Are You Sexually Active? Yes Not Itz Information not available 10/04/2022 Do You Feel Stressed (tense, Restless, Nervous, Or Anxious, Or Unable To Sleep At Night)? [id number] Information not available 10/04/2021 Do You Use Any Illicit Or Recreational Drugs? No Information not available 10/04/2021 Do You Or Have You Ever Used Any Other Forms Of Tobacco Or Nicotine? No Information not available 10/04/2021 How Many Days In The Past Year Have You Consumed 4 Or More Drinks? 0 Information no t available 10/04/2021 Sex: Female Functional Status Question Answer Note LastModified by Organization D etails LastModified Time What is your exercise level? None Information not available 10/04/2021 Mental Status None recorded. Family History Relationship Description Onset Age of this Age Resolved Age Notes LastModified by Organization Details LastModified Time Father No current problems or disability Not available 10/04 08:57:49 Mother No current problems or disability Not available 10/04 08:57:49 Sister Leukemia [email or web address] Not availabl e 10/07/2023 08:07:56 Brother Disorder of macula of retina naheed anderson tmeczywor Not available 10/07/2023 08:08:29 Medical History Condition Response Anesthesia complications N High Blood Pressure N Candidate for MyRisk panel N Autoimmune Condition N Depression N Lung Disease N Defects or Inherited Disease N History of Ovarian Cancer N BRCA testing in past N Anxiety Disorder N Arthritis N Infertility N History of Cancer N Endometriosis N Kidney or Bladder Problems N Thyroid Problems N GI Problems N Anemia N History of Breast Cancer N HERMAN exposure N Osteopenia N Psychiatric Illness N Diabetes N Headaches or Migraines N Asthma Y Hepatitis N Heart Disease N Hypertension N Osteoporosis N Gynecological History Statement/Question Response If Post Menopausal, Age at Menopause 54 Age at Menarche 13 Most Recent Mammogram 07/09/2024 Age at First Child 31 Obstetrics History GPAL:G 3 P 3 0 0 3 Type Value Full Term 3 Living 3 Total 3 Immunizations Vaccine Type Date Status Note Provider Nam e and Address Organization Details Recorded Time Influenza, split virus, quadrivalent, preservative 9 completed Karma Meczywor null, [place] - [facility], 12/19/2022 08:25:29 Influenza, MDCK, quadrivalent, PF 2 completed Karma Meczywor null, [place] - [facility], 12/19/2022 08:25:29 Influenza, MDCK, quadrivalent, PF 0 completed Karma Meczywor null, [place] - [facility], 12/19/2022 08:25:29 zoster recombinant 2 completed Karma Meczywor null, [place] - [facility], 12/19/2022 08:25:29 zoster recombinant 2 completed Karma Meczywor null, [place] - [facility], 12/19/2022 08:25:29 COVID-19, mRNA, LNP-S, PF, 100 mcg/0.5mL dose or 50 mcg/0.25mL dose 1 completed Karma Meczywor null, [place] - [facility], 12/19/2022 08:25:29 COVID-19, mRNA, LNP-S, PF, 100 mcg/0.5mL dose or 50 mcg/0.25mL dose 1 completed Karma Meczywor null, [place] - [facility], 12/19/2022 08:25:29 COVID-19, mRNA, LNP-S, PF, 100 mcg/0.5mL dose or 50 mcg/0.25mL dose 1 completed Karma Meczywor null, [place] - [facility], 12/19/2022 08:25:29 Pneumococcal conjugate PCV20, polysaccharide [id number] conjugate, adjuvant, PF 2 completed Karma Meczywor null, [place] - [facility], 12/19/2022 08:25:29 Influenza, split virus, trivalent, PF 7 completed Karma Meczywor null, [place] - [facility], 12/19/2022 08:25:29 Influenza, split virus, quadrivalent, PF 1 completed Karma Meczywor null, [place] - [facility], 12/19/2022 08:25:30 COVID-19, mRNA, LNP-S, PF, 100 mcg/0.5mL dose or 50 mcg/0.25mL dose 1 completed Karma Meczywor null, [place] - [facility], 10/07/2023 08:05:48 COVID-19, mRNA, LNP-S, PF, 100 mcg/0.5mL dose or 50 mcg/0.25mL dose 1 completed Karma Meczywor null, [place] - [facility], 10/07/2023 08:05:48 COVID-19, mRNA, LNP-S, PF, 100 mcg/0.5mL dose or 50 mcg/0.25mL dose completed Karma castorena MA - [facility], 10/07/2023 08:05:48 Past Encounters Encounter ID Performer Location Encounter Start Date Encounter Closed Date Diagnosis/Indication Diagnosis SNOMED-CT Code Diagnosis ICD10 Code Diagnosis Note [id number] MD MARLENE Kirk MD [address] [place] [address],[place] [address] 10/04/2021 08:48:21 10/04/2021 09:52:10 Specialized medical examination 91683015 Z01.419 Screening for malignant neoplasm of rectum 100741736 Z12.12 Screening mammography 24 431656 Z12.31 [id number] MD MARLENE Kirk MD [address] [place] [address],[place] [address] 10/04/2022 08:36:26 10/04/2022 10:50:42 Specialized medical examination 21524396 Z01.419 Screening for malignant neoplasm of rectum 034326161 Z12.12 Screening mammography 24 688732 Z12.31 [id number] MD MARLENE Kirk MD [address] [place] [address],[place] [address] 12/05/2022 09:34:20 12/05/2022 11:31:47 Acute lower urinary tract infection 399729195 R30.0 [id number] MD MARLENE Kirk MD [address] [place] [address],[place] [address] 12/19/2022 08:22:14 12/19/2022 09:56:22 Acute lower urinary tract infection [id number] R30.0 [id number] MD MARLENE Kirk MD [address] [place] [address],[place] [address] 10/07/2023 08:01:30 10/07/2023 12:41:23 Specialized medical examination 33620374 Z01.419 Screening for malignant neoplasm of rectum 514727417 Z12.12 Screening mammography 24 521910 Z12.31 [id number] MD MARLENE Kirk MD [address] [place] [address], [address] [place] [address] 10/13/2024 07:56:27 10/13/2024 10:38:31 Screening for malignant neoplasm of cervix 229546619 Z12.4 Screening mammography 24 215269 Z12.31 Screening for osteoporosis 838760598 N95.8 Health Concerns Section Related Observation LastModified by Organization Detai ls LastModified Time None Recorded Concern Status LastModified by Organization Details LastModified Time None Recorded Advance Directives Directive None Recorded Payers Encounter Date Sequence Insurance Name Policy Number Policy Park Covered Member ID Park Member ID Guarantor Name 10/04/2022 2 [place] [place] [id number] Monica Iraheta [id number] 21 Monicaalex Iraheta 12/05/2022 2 [place] [place] [id number] Monica Iraheta [id number] Monica Esequiel 12/19/2022 2 [place] [id number] Monica Iraheta [id number] 21 Monica Esequiel 10/07/2023 2 [place] [employer] [place] [id number] Monica Iraheta [id number] 21 Monica Esequiel 10/13/2024 2 [place] [id number] Monica Esequiel [id number] 21 Monica Esequiel 10/13/2024 1 [place] [employer] [employer] Monicaalex Iraheta [id number] Monica Esequiel Notes Date Note Type Note Provider Name and Address Organization Details Recorded Time 10/04/2022 text/html She is here for annual, doing well, her 26 year old daughter lives with her, things are good.She is a . Has not yet had colonoscopy but will get it soon. Note from 2021: She is here for annual exam, as a new patient. she had a mammogram in 06/18 that noted dense breasts and she was advised to discuss this with her doctor. 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 She has not dated since then. Her youngest daughter still lives at home.We disucssed the dense breast issues.She appears to be doing well. She had her colonoscopy 11 years ago, is advised to set this up, she agrees to do so.Is seeing her new PCP in November. Marlene Pastrana MD [address], [place], [address], [employer] [facility], 10/04/2022 09:22:05 12/05/2022 text/html She is here for a one week histroy of worsening dysuria, frequency, urgency and nocturia. She is not sexually active, she does hold her urine for a long time sometimes, though. Marlene Pastrana MD [address] [facility],[address], [place], [address], [employer] [facility], 12/05/2022 10:14:50 12/19/2022 text/html She is here for ASHLIE after UTI, she still has mild dysuria however the frequency nad urgency is resolved. Urine culture grew > 10 6th E Coli, sensitive to the macrobid that she took. Marlene Pastrana MD [address] [facility],[address], [place], [address], [employer] [facility], 12/19/2022 09:32:56 10/07/2023 text/html She is here for annual, doing well, her daughter still living with her, She's great! She had her colonoscopy last year , No polyps!. Note from 2022: She is here for annual, doing well, her 26 year old daughter lives with her, things are good.She is a .Has not yet had colonoscopy but will get it soon. Marlene Pastrana MD [address], [place], [address], [employer] [facility], 10/07/2023 08:27:42 10/13/2024 text/html She is here for annual, doing well, her son is expecting her first grandchild, her daugther lives with her, she is happy! Note from 2023: She is here for annual, doing well, her daughter still living with her, She's great! She had her colonoscopy last year , No polyps! Marlene Pastrana MD [address] [place] [address],[address], [place], [address], [place] - [facility], 10/13/2024 08:21:18 OBGyn Episode No OBEpisode recorded.
--- OUTSIDE RECORDS SUMMARY | 2024-11-12 08:02 | XMS_ITS | Clinical Summary ---
Author Organization [facility] Address [address] [place] [address] Care Team Providers Care Technology Advisor Name Role Phone Unavailable Primary Care Provider Unavailabl e Source Comments PLEASE NOTE, if this patient is a minor, it may be UNLAWFUL to discuss sensitive information that is contained in these records (such as FAMILY PLANNING, MENTAL HEALTH or SUBSTANCE ABUSE) with the minor patient's parent or other person without the patient's specific authorization.[facility] Immunizations Immunization Administration Dates Next Due Moderna COVID-19 Vaccine, re d cap blue label, 12+ Primary Series 11/09/2020,10/12/2020 Social History Tobacco Use Types Packs/Day Years Used Date Smoking Tobacco: Never Assessed Social Connections Answer Date Recorded Social Connections and Isolation 0 10/12/2020 Financial Resource Strain Answer Date R ecorded Financial Resource Strain 0 2020 Stress Answer Date Recorded Stress 0 10/12/2020 Physical Activity Answer Date Recorded Physical Activity 0 10/12/2020 Food Insecurity Answer Date Recorded Food 0 10/12/2020 Transportation Needs Answer Date Record ed Transportation 0 10/12/2020 Housing Stability Answer Date Recorded Housing 0 10/12/2020 Safety and Environment Answer Date Elias rded Safety 0 10/12/2020 Utilities Answer Date Recorded Utilities 0 10/12/2020 Employment Answer Date Recorded Employment 0 10/12/2020 Comments Unknown Sex and Gender Information Value Date Recorded Sex Assigned at Not on file Legal Sex Female 5:31 AM PDT Gender Identity Not on file Sexual Orientation Not on file Plan of Treatment Health Maintenance Due Date Last Done Comments Anxiety Screening 1959 Diabetes Screening 1959 Hepatitis C Screening 1959 Lipid Screening 1959 Tobacco Screening 1959 HIV Screening 1974 Hypertension Screening (#1) 1977 Imm-DTaP/Tdap/Td (1 - Tdap) 1978 Breast Cancer Screening (Mammogram) 1999 CT Colonography 2004 Colonoscopy 2004 Colorectal Cancer Screening 2004 FIT/gFOBT 2004 Fecal DNA 2004 Flexible Sigmoidoscopy 2004 Imm-Pneumococcal 65+ (1 of 1 - PCV) 2009 Imm-Zoster, Recombinant (1 of 2) 2009 [id number]-30 ( season) 03/29/202411/09/ 021, 10/12/2020 Imm-Influenza (#1) 2024 06/24/2020, 1 08/23/2018, 07/10/2017 Alcohol and Drug Screen 07/29/2024 Depression Annual Screen 07/29/2024 Bone Density Screening 2024 Falls Prevention 2024 Insurance [place] [employer]/NATHALIE CRAWFORD Member Subscriber Plan / Payer (Ef fective 2014-Present) Name:Monica Iraheta Relation to Subscriber:Self Name:Monica Iraheta Payer ID:[id number] Type:Indemnity Address: [facility] [id number] [place] [address]
--- NOTE | 2024-11-12 08:04 | MHC.PC.OV ---
Intake Visit Reasons: [facility] Allergies No Known Allergies Allergy (Verified 08/12/24 10:53) Tobacco use date assessed: 11/25/23 Dental Screening Dental Screen Date: 11/25/23 [facility] Medical History (Updated 08/12/24 @ 11:18 by Mayra Whittington PA-C) Fatigue Major depressive disorder, recurrent episode, mild Generalized anxiety disorder Frequent loose stools Nausea GERD with esophagitis Family History (Updated 11/25/23 @ 09:03 by Ebony Fairbanks CMA) Mother HTN (hypertension) Hypercholesteremia Father HTN (hypertension) Hypercholesteremia Sister Leukemia Social History Housing: House Patient Tobacco Use Status: Never used Tobacco e-Cigarette/Vaping Use: Never Used Second Hand Smoke Exposure: Yes (occasionally) service: No Current occupational status: employed Current occupation: [employer] Current occupational exposures/hazards: No Cognitive needs: No Hearing needs: No Vision needs: Yes (Distance glasses) Questionnaire Thrive Questionnaire Date Thrive assessed: 08/09/24 I am a: Patient What is your living situation today?: I have a steady place to live Within the past 12 months, did the food you bought not last and you didn't have the money to get more?: Never true Within the past 12 months, did you worry whether your food would run out before you got money to buy more?: Never true Do you have trouble paying for medicines?: No Do you have trouble getting transportation to medical appointments?: No Do you have trouble paying your heating and electricity bill?: No Do you have trouble taking care of your child, family member or friend?: No Do you have trouble with day-to-day activities such as bathing, preparing meals, shopping, managing finances, etc.?: I choose not to answer this question Are you currently unemployed and looking for a job?: No Are you interested in more education?: I choose not to answer this question Please select the resources that you would like help with: None Currently or been in a relationship where the following occur: No concerns reported THRIVE Score: 0 DANUTA-7 AMB Questionnaire DANUTA-7 Date DANUTA - 7 assessed: 11/25/23 Source: Developed by Drs. Jeffry Peters, Kassandra Randle, Torito Santa and colleagues, with an educational uli from [employer]. Physical exam (Primary Care) Tobacco/Smoking Status: Tobacco use Status Tobacco use date assessed 11/25/23 08/12/24 10:54 Patient Tobacco Use Status Never used Tobacco 08/12/24 10:54 e-Cigarette/Vaping Use Never Used 08/12/24 10:54 Thrive Assessment: Date of Thrive Assessment Date Thrive assessed 08/09/24 08/12/24 10:54 Currently or been in a relationship where the following occur: No concerns reported Coding
--- NOTE | 2024-11-12 08:09 | AM.OFFVISMDC ---
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 She has no acute concerns today. Psych: Anxiety well-controlled with Lexapro GI: GERD is well-controlled with pantoprazole 40 mg twice a day. She has successfully lost 15 lb with diet and exercise. She is feeling well. [place] [facility] [place]: Dr. Trevino Colonoscopy: 2023- wnl not due til 2033 Bone density: booked next week [facility] Medical History (Updated 11/12/24 @ 08:46 by Mayra Whittington PA-C) Fatigue Major depressive disorder, recurrent episode, mild Generalized anxiety disorder Frequent loose stools Nausea GERD with esophagitis Family History Mother HTN (hypertension) Hypercholesteremia Father HTN (hypertension) Hypercholesteremia Sister Leukemia Social History (Updated 11/12/24 @ 11:25 by Ebony Fairbanks CMA) Housing: House Alcohol intake: never Patient Tobacco Use Status: Never used Tobacco e-Cigarette/Vaping Use: Never Used Second Hand Smoke Exposure: Yes (occasionally) Use of substances other than those prescribed or required for medical reasons: No service: No Current occupational status: employed Current occupation: [employer] Current occupational exposures/hazards: No Cognitive needs: No Hearing needs: No Vision needs: Yes (Distance glasses) Questionnaire Medicare Wellness Checkup [age] 65-68 What gender do you identify with?: female During the past 4 weeks, how much have you been bothered by emotional problems such as feeling anxious, depressed, irritable, sad or downhearted, and blue?: not at all During the past 4 weeks, has your physical & emotional health limited your social activities with family, friends, neighbors, or groups?: not at all During the past 4 weeks, how much bodily pain have you generally had?: very mild pain During the past 4 weeks, what was the hardest physical activity you could do for at least 2 minutes?: light Can you get to places out of walking distance without help? (For eg., can you travel alone on buses, taxis or drive your car?): Yes Can you go shopping for groceries or clothes without someone's help?: Yes Can you prepare your own meals?: Yes Can you do your housework without help?: Yes Because of any health problems, do you need the help of another person with your personal care needs such as eating, bathing, dressing or getting around the house?: No Can you handle your own money without help?: Yes During the past 4 weeks, how would you rate your health in general?: good During the past 4 weeks how have things been going for you?: pretty well Are you having difficulties driving your car?: no Do you always fasten your seat belt when you are in a car?: yes, usually During past 4 weeks, have you been bothered by the following: never: Falling or dizzy when standing up, Sexual problems?, Trouble eating well?, Teeth or denture problems?, Problems using the telephone? and Tiredness or fatigue? Have you fallen 2 or more times in the past year?: No Are you afraid of falling?: No Are you a smoker?: no During the past 4 weeks, how many drinks of wine, beer, or other alcoholic beverages did you have?: no alcohol at all Have you been given information to help with the following?: yes: Keeping track of your medications? and no: Hazards in your house that might hurt you? How often do you have trouble taking medicines the way you have been told to take them?: I always take medicine as prescribed How confident are you that you can control & manage most of your health problems?: very confident What is your race?: White Mini Mental State Exam (MMSE) Orientation What is the (year) (season) (date) (day) (month)?: year (2024), season (spring), date (11/12), day () and month (October) Where are we (state) (county) (town or city) (hospital) (floor)?: state ([place]), county ([place]), town or city ([place]), hospital/clinic ([facility]) and floor ([place]) Registration Name of 3 unrelated objects clearly and slowly, then ask patient to repeat all 3 of them. (1st repeat determines score. Make sure they can repeat all three): object 1 (ball), object 2 (flag) and object 3 (tree) Attention & Calculation (CHOOSE ONE) Spell WORLD backwards (DLROW): 5 letters Recall Ask patient to repeat the 3 items from question #3.: object 1 (ball) and object 2 (flag) Language Show patient a wristwatch & ask what it is. Repeat for pencil.: watch and pencil Ask the patient to repeat the phrase 'No ifs, ands, or buts' after you.: correct Ask the patient to 'take a piece of paper with their right hand' 'fold paper in half' 'place paper on floor': take paper in right hand Print the sentence 'CLOSE YOUR EYES' on a piece. If patient actually closes eyes then score.: followed written direction Give patient a blank piece of paper & ask to write a sentence. Score if it contains a noun & verb.: sentence contains subject and verb Ask patient to copy figure of intersecting pentagons exactly. Score if all 10 angles & 2 intersects are included.: all 10 angles present & 2 are intersected Score Score: 27 Activity of Daily Living Bathing - sponge bath, tub bath or shower: receives no assistance (gets in/out by self, if usual bathing means Dressing - getting clothes from closets & drawers, including inner/outer garments & fasteners.: gets clothes & gets completely dressed without help Transfer: moves in & out of bed and chair without help (may use support object) Continence: controls urination/bowel movements completely by self Feeding: feeds self without help Total Score: 0 Information obtained from: patient Using telephone: independent Traveling: independent Shopping: independent Preparing meals: independent Housework: independent Taking medicine: independent Managing money: independent PHQ-9 Over the last 2 weeks, how often have you been bothered by any of the following problems? 1. Little interest or pleasure in doing things: not at all 2. Feeling down, depressed, or hopeless: not at all 3. Trouble falling or staying asleep, or sleeping too much: not at all 4. Feeling tired or having little energy: not at all 5. Poor appetite or overeating: not at all 6. Feeling bad about yourself - or that you are a failure or have let yourself or your family down: not at all 7. Trouble concentrating on things, such as reading the newspaper or watching television: not at all 8. Moving or speaking so slowly that other people could have noticed. Or the opposite - being so fidgety or restless that you have been moving around a lot more than usual: not at all 9. Thoughts that you would be better off or of hurting yourself in some way: not at all Total score: 0 Depression Screening Interpretation: Negative Depression Screening Done: Yes 19764 - PHQ-9 Billing: Yes Source: Developed by Drs. Jeffry Peters, Kassandra Randle, Torito Santa and colleagues, with an educational uli from [employer]. Physical Exam Vital Signs: Last Vital Signs Pulse 61 11/12/24 08:13 Resp 14 11/12/24 08:13 BP 128/76 11/12/24 08:13 Pulse Ox 98 11/12/24 08:13 Oxygen Delivery Method Room Air 11/12/24 08:13 BMI result Body Mass Index 28.1 Const Orientation/consciousness: patient oriented x3 HEENT Ears: hearing grossly normal bilaterally Neck Thyroid: Thyroid normal Lymphatic: no lymphadenopathy noted Resp Auscultation: clear to auscultation bilaterally Cardio Rate: regular rate Rhythm: regular rhythm Heart sounds: S1 normal heart sound present and S2 normal heart sound present GI Inspection: Yes normal to inspection Palpation (GI): Soft to palpation and Other GI palpation findings present (nontender, no cva tenderness) Auscultation: normoactive bowel sounds Rectal Exam - Female: deferred Skin General skin exam: no rashes or lesions noted Neuro General: patient oriented x3, gait normal and no focal motor deficits Office Procedures EKG Details: EKG today in the office is sinus bradycardia at a rate of 52 beats per minute with nonspecific STT wave abnormalities. No prior study to compare. EKG interpreted myself. [id number], Complete Assessment & Plan Assessment & Plan (1) Medicare annual wellness visit, initial: Code(s): Z00.00 - Encounter for general adult medical examination without abnormal findings Plan: Health maintenance reviewed. Declines MOLST (2) Generalized anxiety disorder: Code(s): F41.1 - Generalized anxiety disorder Plan: Well-controlled. Continue current regimen (3) GERD with esophagitis: Code(s): K21.00 - Gastro-esophageal reflux disease with esophagitis, without bleeding Qualifiers: Esophagitis bleeding: without hemorrhage Qualified Code(s): K21.00 - Gastro-esophageal reflux disease with esophagitis, without bleeding Plan: As above Orders: Orders Comprehensive [place]. Panel Fast Today Z01.89 - Encounter for other specified special examinations Complete Blood Count Auto Diff Today Z01.89 - Encounter for other specified special examinations Lipid Panel Today Z01.89 - Encounter for other specified special examinations TSH reflex Free T4 Today Z01.89 - Encounter for other specified special examinations UA CC w/rflx Micro + Cult Today Z01.89 - Encounter for other specified special examinations, Z13.220 - Encounter for screening for lipoid disorders AMB EKG-In Office Today Z00.00 - Encounter for general adult medical examination without abnormal findings, Z13.6 - Encounter for screening for cardiovascular disorders Medications: New albuterol sulfate 90 mcg/actuation 2 puffs inhalation QID PRN 8.5 grams 2RF shortness of breath or wheezing pantoprazole 40 mg PO BID 180 tabs 1RF fluticasone propionate 220 mcg/actuation 2 puffs inhalation BID 12 grams 3RF Quality Reporting (2019) Depression/Bipolar (159/160/161/177) PHQ-9: Total score: 0 Coding Level of Care Code Medicare First (G0438) Est Pt Level 3 (58136) Diagnoses Medicare annual wellness visit, initial Z00.00 Generalized anxiety disorder F41.1 Gastroesophageal reflux disease with esophagitis without hemorrhage K21.00 Esophagitis bleeding: without hemorrhage CPT Codes EKG - CPT: 41489-[id number], Complete ([id number]) Additional Codes PHQ-9 - 68183 - PHQ-9 Billing: Yes ([id number]) Advance Care Planning Advance Care Planning discussion: Declined forms Forms completed: None
[2024-11-12 08:13] VITALS: BP 128/76; PULSE 61; RESP 14; O2SAT 98; BMI 28.1
== END 2024-11-12 08:49 | disposition home or self-care (01) ==
LOC: HO.HMCFM 07:58
PROVIDERS: PCP Physician Assistant; Visit Provider Physician Assistant
DX: Z00.00 Encounter for general adult medical examination without abnormal findings (principal); F41.1 Generalized anxiety disorder; K21.00 Gastro-esophageal reflux disease with esophagitis, without bleeding; Z13.6 Encounter for screening for cardiovascular disorders

== ENCOUNTER → 2024-11-12 07:57 | Outpatient (BNVA) | payer MEDICARE, SELFPAY | PROVIDERS: PCP Physician Assistant; Visit Provider Physician Assistant | DX: Z00.00 Encounter for general adult medical examination without abnormal findings (principal); F41.1 Generalized anxiety disorder; K21.00 Gastro-esophageal reflux disease with esophagitis, without bleeding | CPT/HCPCS: 93005; 96127; 99212 ==